=== PATIENT | female | born 1950 | race Caucasian/White ===

== ENCOUNTER 2018-01-22 15:17 | Inpatient (IN) | payer MEDICARE, OTHER ==
--- NOTE | 2018-01-22 15:19 | ER Report ---
History and Physical Time Seen By MD: 15:19 HPI/ROS CHIEF COMPLAINT: Fall HISTORY OF PRESENT ILLNESS: PT has a access hole in the bathroom that goes down to their crawl space. The cover was off the hole and the patient accidentally stepped back into the hole falling 5 feet down. Pt hit her r shoulder, r ribs and r upper abdomen on the wall of the hole on her way down. Pt also twisted her ankles with landing. Denies back pain. pt is able to move all extremities but has ankle pain with walking and shoulder pain with movement. Pt has r rib pain with deep breath. did not hit her head. REVIEW OF SYSTEMS: Constitutional: No fever, no chills. Eyes: No discharge. ENT: No sore throat. Cardiovascular: No chest pain, no palpitations. Respiratory: No cough, no shortness of breath. Gastrointestinal: No abdominal pain, no vomiting. Genitourinary: No hematuria. Musculoskeletal: No back pain, + r shoulder, ankle and rib pain Skin: No rashes. Neurological: No headache. Allergies: Coded Allergies: Penicillins (Verified Allergy, Unknown, 01/22/18) Home Meds Reported Medications Atorvastatin Calcium (LIPITOR) 20 Mg Tablet, 1 TAB PO QDAY, TAB 01/22/18 Past Medical/Surgical History pmhx: hyperlipid, htn Pshx: left foot Reviewed Nurses Notes: Yes Hx Smoking: No Hx Alcohol Use: No Constitutional Vital Sign - Last 24 Hours 01/22/18 01/22/18 01/22/18 15:22 15:30 17:00 Temp 98.5 Pulse 66 68 68 Resp 20 B/P (MAP) 144/83 135/72 (93) 140/79 (99) Pulse Ox 84 94 O2 Delivery Room Air Physical Exam General Appearance: The patient is alert, has no immediate need for airway protection and no signs of toxicity. Eyes: Pupils equal and round no pallor or injection, EOMI ENT: no pharyngeal erythema or exudates, Mucous membranes are moist, TM are nl b/l, neg hemotympanums Respiratory: There are no retractions, lungs are clear to auscultation, + tenderness r chest wall lateral right ribs 4-8 Cardiovascular: Regular rate and rhythm. pulses are equal and symmetrical Gastrointestinal: Abdomen is soft with mild tenderness ruq, no masses, bowel sounds normal, no guarding, no rigidity or rebound Neurological: Cranial nerves II-XII grossly intact, no sensory or motor loss Skin: Warm and dry, no rashes, + abrasions on b/l distal tibias Musculoskeletal: Neck is supple non tender, no vertebral tenderness Extremities have full range of motion no obvious deformity. + pain with ROM with r shoulder with abduction; no pain at elbows with supination and pronation, pt has no pelvis tenderness, no laxity at knee or ankle with rom DIFFERENTIAL DIAGNOSIS: After history and physical exam differential diagnosis was considered for shoulder fx vs contusion, rib fx vs contusion, liver contusion vs laceration, ankle fx vs sprain Medical Decision Making Data Points Result Diagram: 01/22/18 1540 01/22/18 1540 Laboratory Hematology Test 01/22/18 15:40 Red Blood Count 5.21 M/uL (4.17-5.56) Mean Corpuscular Volume 89.7 fL (80.0-96.0) Mean Corpuscular Hemoglobin 30.8 pg (26.0-33.0) Mean Corpuscular Hemoglobin Concent 34.3 g/dL (32.0-36.0) Red Cell Distribution Width 13.5 % (11.5-14.5) Mean Platelet Volume 8.3 fL (7.2-11.1) Neutrophils (%) (Auto) 78.5 % (39.4-72.5) Lymphocytes (%) (Auto) 14.4 % (17.6-49.6) Monocytes (%) (Auto) 6.1 % (4.1-12.4) Eosinophils (%) (Auto) 0.5 % (0.4-6.7) Basophils (%) (Auto) 0.5 % (0.3-1.4) Nucleated RBC Relative Count (auto) 0.1 /100WBC Neutrophils # (Auto) 8.3 K/uL (2.0-7.4) Lymphocytes # (Auto) 1.5 K/uL (1.3-3.6) Monocytes # (Auto) 0.6 K/uL (0.3-1.0) Eosinophils # (Auto) 0.0 K/uL (0.0-0.5) Basophils # (Auto) 0.0 K/uL (0.0-0.1) Nucleated RBC Absolute Count (auto) 0.01 K/uL Sodium Level 141 mmol/L (137-145) Potassium Level 3.7 mmol/L (3.5-5.0) Chloride Level 102 mmol/L (98-107) Carbon Dioxide Level 27 mmol/L (22-31) Blood Urea Nitrogen 24 mg/dl (7-18) Creatinine 1.10 mg/dl (0.52-1.04) Glomerular Filtration Rate Calc 49.1 Random Glucose 133 mg/dl (75-110) Calcium Level 9.6 mg/dl (8.4-10.2) Total Bilirubin 0.3 mg/dl (0.2-1.3) Aspartate Amino Transf (AST/SGOT) 80 U/L (0-35) Alanine Aminotransferase (ALT/SGPT) 88 U/L (0-56) Alkaline Phosphatase 31 U/L (0-126) Total Protein 7.4 g/dl (6.3-8.2) Albumin 4.2 g/dl (3.5-5.0) Chemistry Test 01/22/18 15:40 White Blood Count 10.5 k/uL (4.5-11.0) Red Blood Count 5.21 M/uL (4.17-5.56) Hemoglobin 16.1 g/dL (12.0-16.0) Hematocrit 46.8 % (34.0-47.0) Mean Corpuscular Volume 89.7 fL (80.0-96.0) Mean Corpuscular Hemoglobin 30.8 pg (26.0-33.0) Mean Corpuscular Hemoglobin Concent 34.3 g/dL (32.0-36.0) Red Cell Distribution Width 13.5 % (11.5-14.5) Platelet Count 258 K/uL (150-450) Mean Platelet Volume 8.3 fL (7.2-11.1) Neutrophils (%) (Auto) 78.5 % (39.4-72.5) Lymphocytes (%) (Auto) 14.4 % (17.6-49.6) Monocytes (%) (Auto) 6.1 % (4.1-12.4) Eosinophils (%) (Auto) 0.5 % (0.4-6.7) Basophils (%) (Auto) 0.5 % (0.3-1.4) Nucleated RBC Relative Count (auto) 0.1 /100WBC Neutrophils # (Auto) 8.3 K/uL (2.0-7.4) Lymphocytes # (Auto) 1.5 K/uL (1.3-3.6) Monocytes # (Auto) 0.6 K/uL (0.3-1.0) Eosinophils # (Auto) 0.0 K/uL (0.0-0.5) Basophils # (Auto) 0.0 K/uL (0.0-0.1) Nucleated RBC Absolute Count (auto) 0.01 K/uL Glomerular Filtration Rate Calc 49.1 Calcium Level 9.6 mg/dl (8.4-10.2) Total Bilirubin 0.3 mg/dl (0.2-1.3) Aspartate Amino Transf (AST/SGOT) 80 U/L (0-35) Alanine Aminotransferase (ALT/SGPT) 88 U/L (0-56) Alkaline Phosphatase 31 U/L (0-126) Total Protein 7.4 g/dl (6.3-8.2) Albumin 4.2 g/dl (3.5-5.0) EKG/Imaging Imaging see reports. ED Course/Re-evaluation Clinical Indication for ER IV: IV Access ED Course xray and CT areas of discomfort. Will give tetnus due to pts abrasions. 01/22/2018 5:15:07 pm Radiologist called me to let me know that her CT of abd and pelvis did not have any contrast due to infiltration of contrast into r arm. Did speak wtih pt and she denies pain in arm. Line was removed and nurses notified to observe. 01/22/2018 5:26:17 pm Surgery here to admit patient. pt has multiple rib fractures on right with small pneumothorax. Ptx not evident on CXR. Pts ankle/foot do not show any acute fx. pt does have old remote avulsion fx on right ankle which pt was unaware. Pts shoulder and clavicle stable. 01/22/2018 5:31:25 pm Resp called to perform FVC and start insentive spirometer Decision to Disposition Date: Jan 22, 2018 Decision to Disposition Time: 17:27 Depart Departure Latest Vital Signs Vital Signs Date Time Temp Pulse Resp B/P (MAP) Pulse Ox O2 Delivery O2 Flow Rate FiO2 01/22/18 17:00 68 140/79 (99) 01/22/18 15:30 94 01/22/18 15:22 98.5 20 Room Air Impression: Primary Impression: Multiple rib fractures Additional Impressions: Fall Pneumothorax on right Multiple contusions Condition: Stable Disposition: Admitted from ER Problem Qualifiers Primary Impression: Multiple rib fractures Encounter type: initial encounter Fracture type: closed Laterality: right Qualified Codes: S22.41XA - Multiple fractures of ribs, right side, initial encounter for closed fracture Additional Impressions: Fall Encounter type: initial encounter Qualified Codes: W19.XXXA - Unspecified fall, initial encounter EDSON PATHAK DO Jan 22, 2018 15:19
[2018-01-22] MEDS ORDERED: ATOR20TA22 PO (15:29)
[2018-01-22] MEDS ORDERED: DIPHTH/TETANUS/ACEL. PERTUSSIS IM ONLY ONE (15:35)
[2018-01-22] MEDS ORDERED: IOPAMIDOL 76% 75 ML INFUS BTL 75 ML ONE (15:59)
[2018-01-22] MEDS ORDERED: NS(*) 0.9% 500 ML BAG 500 ML IV ONE (16:05)
[2018-01-22 16:23] LABS: PLATELET COUNT, AUTOMATED 258 K/uL (150-450)
--- NOTE | 2018-01-22 16:47 | RADIOLOGY IMAGING REPORT ---
FACILITY: [facility] PATIENT NAME: Lissa Belle : 1950 MR: [id number] V: [id number] EXAM DATE: ORDERING PHYSICIAN: EDSON PATHAK TECHNOLOGIST: Location: [facility] - [place] Patient: Lissa Belle : 1950 Visit/Account:[id number] Date of Sevice: 01/22/2018 CHEST PA AND LAT COMPARISONS: None. ADDITIONAL PERTINENT HISTORY: Fall down 5 foot hole FINDINGS: Cardiomediastinal silhouette: Negative. Pulmonary vasculature: Mild atherosclerotic disease of the thoracic aortic arch. Otherwise negative Lung yu: Minimal bibasilar regions of scarring. Pleural spaces: Negative. Osseous structures: Mild spondylitic change involving the thoracic spine. Minimally displaced transport coordinator ior lateral right seventh and eighth rib fractures. Surrounding soft tissues: Negative. IMPRESSION: 1. Mildly displaced right seventh and eighth rib fractures. 2. No acute cardiopulmonary disease. Report Dictated By: Tomasz Ramirez MD at 01/22/2018 4:41 PM Report E-Signed By: Tomasz Ramirez MD at 01/22/2018 4:44 PM WSN:[id number]
--- NOTE | 2018-01-22 16:49 | RADIOLOGY IMAGING REPORT ---
FAC[place] [facility] [place] PATIENT NAME: Lissa Belle : 1950 MR: [id number] V: [id number] EXAM DATE: ORDERING PHYSICIAN: EDSON PATHAK TECHNOLOGIST: Location: [facility] [place] Patient: Lissa Belle : 1950 Visit/Account:[id number] Date of Sevice: 01/22/2018 Examination: 2 views of the right ribs. Comparisons: Conventional radiographs of the chest dated same day. HISTORY: Patient status post fall down hole. FINDINGS: 2 views of the right ribs demonstrate mildly displaced posterior lateral right eighth and ninth rib f ractures. There are nondisplaced fractures involving the posterior aspects of the right 10th and 12th ribs. Spondylitic change involving the thoracic or lumbar spine. IMPRESSION: 1. Fractures involving the lower right ribs as detailed above. Report Dictated By: Tomasz Ramirez MD at 01/22/2018 4:44 PM Report E-Signed By: Tomasz Ramirez MD at 01/22/2018 4:45 PM WSN:[id number]
--- NOTE | 2018-01-22 16:50 | RADIOLOGY IMAGING REPORT ---
FACILITY: [facility] PATIENT NAME: Lissa Belle : 1950 MR: [id number] V: [id number] EXAM DATE: ORDERING PHYSICIAN: EDSON PATHAK TECHNOLOGIST: Location: [facility] - [place] Patient: Lissa Belle : 1950 Visit/Account:[id number] Date of Sevice: 01/22/2018 ANKLE 3 VIEW MIN RIGHT COMPARISONS: None. ADDITIONAL PERTINENT HISTORY: Fall down hole FINDINGS: Osseous structures: Moderate size plantar calcaneal spur. Small well-corticated bony density projecti ng off the lateral aspect of the medial malleolus compatible with a remote avulsive-type fracture in this region. No acute bony fractures noted. Joint spaces: Negative. Surrounding soft tissues: Negative. IMPRESSION: 1. Findings compatible with a remote avulsive-type fracture off the medial malleolus. 2. Moderate-sized plantar calcaneal spur. 3. No acute appearing bony abnormalities involving the right ankle. Report Dictated By: Tomasz Ramirez MD at 01/22/2018 4:45 PM Report E-Signed By: Tomasz Ramirez MD at 01/22/2018 4:47 PM WSN:[id number]
--- NOTE | 2018-01-22 16:51 | RADIOLOGY IMAGING REPORT ---
FACILITY: [facility] PATIENT NAME: Lissa Belle : 1950 MR: [id number] V: [id number] EXAM DATE: ORDERING PHYSICIAN: EDSON PATHAK TECHNOLOGIST: Location: [facility] Patient: Lissa Belle : 1950 Visit/Account:[id number] Date of Sevice: 01/22/2018 FOOT 3 VIEW LEFT COMPARISONS: None. ADDITIONAL PERTINENT HISTORY: Fall down 5 foot fall. FINDINGS: Osseous structures: Small plantar calcaneal spur. Mild hallux valgus deformity. No bony fractures inv olving the left foot. Joint spaces: Negative. Surrounding soft tissues: Negative. IMPRESSION: 1. Small plantar calcaneal spur. 2. No acute appearing bony abnormalities. Report Dictated By: Tomasz Ramirez MD at 01/22/2018 4:47 PM Report E-Signed By: Tomasz Ramirez MD at 01/22/2018 4:48 PM WSN:[id number]
--- NOTE | 2018-01-22 16:52 | RADIOLOGY IMAGING REPORT ---
FACILITY: [facility] - [place] PATIENT NAME: Lissa Belle : 1950 MR: [id number] V: [id number] EXAM DATE: ORDERING PHYSICIAN: EDSON PATHAK TECHNOLOGIST: Location: [facility] [place] Patient: Lissa Belle : 1950 Visit/Account:[id number] Date of Sevice: 01/22/2018 SHOULDER MIN 2 VIEWS RIGHT COMPARISONS: None. ADDITIONAL PERTINENT HISTORY: Fall down 5 foot fall. FINDINGS: Osseous structures: Subchondral sclerosis and osteophyte formation involving the right acromioclavicu lar joint. Otherwise negative Joint spaces: Negative. Surrounding soft tissues: Negative. IMPRESSION: 1. Mild osteoarthritic changes involving the right acromioclavicular joint. 2. No acute appearing bony abnormalities. Report Dictated By: Tomasz Ramirez MD at 01/22/2018 4:48 PM Report E-Signed By: Tomasz Ramirez MD at 01/22/2018 4:49 PM WSN:[id number]
--- NOTE | 2018-01-22 16:53 | RADIOLOGY IMAGING REPORT ---
FACILITY: [facility] PATIENT NAME: Lissa Belle : 1950 MR: [id number] V: [id number] EXAM DATE: ORDERING PHYSICIAN: EDSON PATHAK TECHNOLOGIST: Location: [facility] - [place], [place] Patient: Lissa Belle : 1950 Visit/Account:[id number] Date of Sevice: 01/22/2018 ANKLE 3 VIEW MIN LEFT COMPARISONS: None. ADDITIONAL PERTINENT HISTORY: Fall down 5 foot whole. FINDINGS: Osseous structures: Small plantar calcaneal spur. No bony fractures involving the left ankle. Joint spaces: Negative. Surrounding soft tissues: Negative. IMPRESSION: 1. No evidence of acute traumatic injury involving the left ankle. Report Dictated By: Tomasz Ramirez MD at 01/22/2018 4:50 PM Report E-Signed By: Tomasz Ramirez MD at 01/22/2018 4:50 PM WSN:[id number]
--- NOTE | 2018-01-22 17:06 | RADIOLOGY IMAGING REPORT ---
FACILITY: [facility] PATIENT NAME: Lissa Belle : 1950 MR: [id number] V: [id number] EXAM DATE: ORDERING PHYSICIAN: EDSON PATHAK TECHNOLOGIST: Location: [facility] Patient: Lissa Belle : 1950 Visit/Account:[id number] Date of Sevice: 01/22/2018 ADDENDUM #1 Results were called to EDSON PATHAK on 01/22/2018 5:12 PM. Report Dictated By: August Polanco MD at 01/22/2018 5:12 PM Report E-Signed By: August Polanco MD at 01/22/2018 5:12 PM ORIGINAL REPORT EXAMINATION: Abdomen and pelvis CT with contrast HISTORY: Fall, right-sided pain TECHNIQUE: CT was performed through the abdomen and pelvis following injection of iodinated intrave nous contrast. Sagittal and coronal MPR reformatted images were generated. 75 mL isovue 370 injected . One of the following dose optimization techniques was utilized in the performance of this exam: autom ated exposure control; adjustment of the mA and/or kV according to patient size; or use of iterative reconstruction technique. Specific details can be referenced in the facility's radiology CT exam ope rational policy. COMPARISON: None. FINDINGS: Notably no contrast is visible within the abdomen in keeping with apparent failure of the injection. Lower chest: Mitral valve calcification versus prosthesis noted. Trace to small partially imaged righ t pneumothorax. Left lower lung subsegmental atelectasis. Right posterior chest wall soft tissue gas related to adjacent rib fractures. Spleen: Normal. Adrenal glands: Normal. Pancreas: Normal. Kidneys: Normal. Gallbladder: Normal. Liver: Normal. Vessels: Normal for age. Lymph node assessment: Normal. Bowel including small bowel, colon and appendix: Normal stomach, normal small bowel, normal appendix, and colonic diverticulosis. No acute bowel abnormality. Peritoneum / retroperitoneum / mesentery: Normal. Pelvic structures: Normal bladder, absent uterus and normal rectum. No pelvic fluid or adenopathy. Body wall: Right posterior lower chest/upper abdomen soft tissue gas related to adjacent rib fracture s and right pneumothorax. Musculoskeletal: Nondisplaced right acute posterior lateral eighth and ninth rib fractures. Displaced posterior right 10th through 12th rib fractures IMPRESSION: 1. Acute nondisplaced right posterolateral eighth and ninth rib fractures. Displaced acute posterior right 10th through 12th rib fractures. 2. Partially imaged trace to small right pneumothorax. 3. Right posterior lower chest/upper abdomen soft tissue gas related to the rib fractures and pneumot horax. 4. This study is a noncontrast study. There was failure of contrast injection and the contrast may carbajal ve extravasated at the injection site. Correlate with exam. 5. No apparent additional acute abnormality. Report Dictated By: August Polanco MD at 01/22/2018 4:50 PM Report E-Signed By: August Polanco MD at 01/22/2018 5:04 PM WSN:[id number]
[2018-01-22] MEDS ORDERED: fentaNYL CITR 100 MCG/2 ML AMP IVP ONE (17:25)
[2018-01-22] MEDS ORDERED: MORPHINE 2 MG/ML SYR IVP PRN (18:35)
[2018-01-22] MEDS ORDERED: hydrALAZINE HCL 20 MG/ML VIAL IVP PRN (18:40)
[2018-01-22] MEDS ORDERED: ONDANSETRON 4 MG/2 ML VIAL IVP PRN (18:40)
[2018-01-22] MEDS: APAP/HYDROCODONE 325/5 TAB PO PRN (18:53)
[2018-01-22] MEDS: GABAPENTIN 300 MG CAP PO SCH (21:43)
[2018-01-22] MEDS: LIDOCAINE 5% PATCH TP SCH (21:44)
[2018-01-23] VITALS (7 sets, daily range): BP systolic 127–145; BP diastolic 57–80
[2018-01-23] MEDS: APAP/HYDROCODONE 325/5 TAB PO PRN ×2 (04:13→23:22)
--- NOTE | 2018-01-23 07:06 | RADIOLOGY IMAGING REPORT ---
FACILITY: [facility] PATIENT NAME: Lissa Belle : 1950 MR: [id number] V: [id number] EXAM DATE: ORDERING PHYSICIAN: ZEKE ESPINOZA TECHNOLOGIST: Location: [facility] Patient: Lissa Belle : 1950 Visit/Account:[id number] Date of Sevice: 01/23/2018 CHEST PA AND LAT HISTORY: Evaluate for progression of pneumothorax. COMPARISON: 01/22/2018. CT abdomen and pelvis 01/22/2018. TECHNIQUE: PA and lateral views of the chest. FINDINGS: Pulmonary: Small right apical pneumothorax is unchanged. It is much better appreciated on the CT abdo men and pelvis. There is minimal atelectasis or scarring in both lower lobes, left greater than right , unchanged. There is stable blunting of the posterior costophrenic angles. Cardiomediastinal: Cardiac and mediastinal silhouettes are within normal limits. Bones/soft tissues: No acute osseous abnormality. There is mild degenerative change of the spine. The visible abdomen is normal. IMPRESSION: 1. Small right apical pneumothorax is unchanged. 2. No change in aeration of the lungs. Report Dictated By: Nancy Smith at 01/23/2018 6:59 AM Report E-Signed By: Nancy Smith at 01/23/2018 7:02 AM WSN:[id number]
--- NOTE | 2018-01-23 08:38 | General Surgery Progress Note ---
Subjective Patient Complains of: Cardiovascular: Chest Pain, Other (at site of rib fractures) Physical Exam Vital Signs Date Time Temp Pulse Resp B/P (MAP) Pulse Ox O2 Delivery O2 Flow Rate FiO2 01/23/18 06:55 85 01/23/18 04:04 98.1 69 14 145/76 (99) Nasal Cannula 2.5 Intake and Output 01/23/18 07:00 Intake Total 500 ml Balance 500 ml Intake IV Total 500 ml # Voids 2 General Appearance: Alert, Awake, No Acute Distress Cardiovascular: Regular Rate and Rhythm Respiratory: Clear to Auscultation, Other (slight splinting with deep inspirations, chest wall tenderness right below and lateral to the breast, mild ecchymosis at that site) GI: Soft and Non-Tender Result Diagram: 01/22/18 1540 01/23/18 0602 Assessment and Plan Problems: (1) Multiple rib fractures Status: Acute Assessment & Plan: 01/23/18 0730: Follow up chest xray without significant contusion or accumulation of hemothorax. Note her oxygen requirement is increasing slightly. We will work on pulmonary toilet and ambulating as well as being out of bed. Today, her creatinine is decreased to 0.6 so will add toradol for improved pain control. (2) Pneumothorax on right Status: Acute Assessment & Plan: 01/23/18 07:30: Follow up CXR this morning does not reveal expansion of pneumothorax noted on CT only during workup. (3) Hypertension Status: Chronic Assessment & Plan: 01/23/18 07:30: The patient does not recall the dosage of her losartan so will ask her to bring in her original bottle for verification. Hydralazine if needed until then. (4) Hyperlipidemia Status: Chronic Assessment & Plan: 01/23/18 07:30: The patient's atorvastin has been reordered. Exam Sepsis Risk: No Definite Risk Problem Qualifiers (1) Multiple rib fractures: Encounter type: subsequent encounter Fracture type: closed Laterality: right ZEKE ESPINOZA MD Jan 23, 2018 07:46
[2018-01-23] MEDS: PATCH REMOVAL 1 EA TP SCH (09:00)
[2018-01-23] MEDS: GABAPENTIN 300 MG CAP PO SCH ×3 (09:41→20:34)
[2018-01-23] MEDS: KETOROLAC 15 MG/ML VIAL IVP SCH ×3 (11:27→23:22)
[2018-01-23] MEDS ORDERED: LOSA100T69 PO (14:04)
[2018-01-23] MEDS ORDERED: ACETA/BUTAL/CAFF 325/50/40 TAB PO PRN (16:40)
[2018-01-23] MEDS: LIDOCAINE 5% PATCH TP SCH (20:37)
[2018-01-24 03:59] VITALS: BP 121/56
[2018-01-24] MEDS: KETOROLAC 15 MG/ML VIAL IVP SCH (05:36)
--- NOTE | 2018-01-24 06:34 | RADIOLOGY IMAGING REPORT ---
FACILITY: [facility] [place] PATIENT NAME: Lissa Belle : 1950 MR: [id number] V: [id number] EXAM DATE: ORDERING PHYSICIAN: ZEKE ESPINOZA TECHNOLOGIST: Location: [facility] Patient: Lissa Belle : 1950 Visit/Account:[id number] Date of Sevice: 01/24/2018 CHEST PA AND LAT HISTORY: Follow-up pneumothorax observed on CT scan at admission. COMPARISON: 01/23/2018 and 01/22/2018. TECHNIQUE: PA and lateral views of the chest. FINDINGS: Pulmonary: Tiny right apical pneumothorax barely perceptible but is unchanged. Small right pleural ef fusion is unchanged. Stable bibasilar opacities. There is mild right hemidiaphragm elevation. Cardiomediastinal: Cardiac and mediastinal silhouettes are within normal limits. There is mild aortic calcification. Bones/soft tissues: No acute osseous abnormality. The visible abdomen is normal. IMPRESSION: 1. Tiny right apical pneumothorax is unchanged. 2. No change in the small right pleural effusion or of the bibasilar opacities, likely atelectasis. Report Dictated By: Nancy Smith at 01/24/2018 6:26 AM Report E-Signed By: Nancy Smith at 01/24/2018 6:29 AM WSN:[id number]
[2018-01-24 07:08] VITALS: BP 120/69
[2018-01-24] MEDS ORDERED: GABA-549 PO (07:53)
[2018-01-24] MEDS ORDERED: DOCU-416 PO (07:53)
[2018-01-24] MEDS ORDERED: IBUP600T22 PO (07:53)
[2018-01-24] MEDS ORDERED: LOR5/325 PO (07:53)
--- NOTE | 2018-01-24 07:58 | Short(Outpt) Discharge Summary ---
Discharge Summary Reason for Hosp/Final Diag: (1) Multiple rib fractures Status: Acute Hospital Course & Plan: 01/23/18 0730: Follow up chest xray without significant contusion or accumulation of hemothorax. Note her oxygen requirement is increasing slightly. We will work on pulmonary toilet and ambu lating as well as being out of bed. Today, her creatinine is decreased to 0.6 so will add toradol for improved pain control. 01/24/18: Doing well. Breathing without problems. Pain well controlled. She wishes to go home today. Her will drive her back to [place] after discharge. Will d/c to home. I don't suspect she'll need home O2 as she'll be going to a lower elevation. She should continue to use her incentive spirometer, deep breathing, etc. (2) Pneumothorax on right Status: Acute Hospital Course & Plan: 01/23/18 07:30: Follow up CXR this morning does not reveal expansion of pneumothorax noted on CT only during workup. (3) Hypertension Status: Chronic Hospital Course & Plan: 01/23/18 07:30: The patient does not recall the dosage of her losartan so will ask her to bring in her original bottle for verification. Hydralazine if needed until then. (4) Hyperlipidemia Status: Chronic Hospital Course & Plan: 01/23/18 07:30: The patient's atorvastin has been reordered. Departure Discharge to: Home, Self Care Discharge Instructions Home Meds Active Scripts Ibuprofen (IBUPROFEN) 600 Mg Tablet, 1 TAB PO QID PRN for PAIN, #30 TAB 0 Refills Prov:BEATRICE GRADY MD 01/24/18 Gabapentin (GABAPENTIN) 300 Mg Capsule, 1 CAP PO TID, #20 CAPSULE 0 Refills Prov:BEATRICE GRADY MD 01/24/18 Docusate Sodium (COLACE) 100 Mg Capsule, 1 CAP PO BID, #30 CAP 0 Refills TAKE WITH A FULL GLASS OF WATER Prov:BEATRICE GRADY MD 01/24/18 Hydrocodone Bit/Acetaminophen (HYDROCODON-ACETAMINOPHEN 5-325) 1 Each Tablet, 1- 2 TAB PO Q6H PRN for MODERATE PAIN, #30 TAB 0 Refills Prov:BEATRICE GRADY MD 01/24/18 Reported Medications Losartan Potassium (LOSARTAN POTASSIUM) 100 Mg Tablet, 100 MG PO QDAY 01/23/18 Atorvastatin Calcium (LIPITOR) 20 Mg Tablet, 1 TAB PO QHS, TAB 01/22/18 Diet: Regular Activity: As Tolerated Special Instructions: You may perform whatever activities that you feel comfortable performing. Stay active and continue to work on deep breathing and using your incentive spirometer. I recommend that you don't fly or scuba dive in the next month as your lung heals. When you picker box operator your prescriptions, purchase a bottle of milk of magnesia and packets of miralax. I recommend that you take the colace tablets twice every day, 30ml of milk of magnesia twice every day, and 1 packet of miralax in an 12oz glass of water daily. Keep up with this regimen until your bowels are functioning normally. Follow up with your primary care provider in the next week. Problem Qualifiers (1) Multiple rib fractures: Encounter type: subsequent encounter Fracture type: closed Laterality: right Fracture healing: with routine healing Qualified Codes: S22.41XD - Multiple fractures of ribs, right side, subsequent encounter for fracture with routine healing (2) Hypertension: Hypertension type: essential hypertension Qualified Codes: I10 - Essential (primary) hypertension (3) Hyperlipidemia: Hyperlipidemia type: unspecified Qualified Codes: E78.5 - Hyperlipidemia, unspecified BEATRICE GRADY MD Jan 24, 2018 07:58
[2018-01-24] MEDS: PATCH REMOVAL 1 EA TP SCH (08:27)
[2018-01-24] MEDS: GABAPENTIN 300 MG CAP PO SCH (08:27)
== END 2018-01-24 10:48 | disposition home or self-care (01) | DRG 184 ==
LOC: ER 15:45 → MED 17:26
PROVIDERS: ADMIT Surgery; ATTEND Surgery
DX: S22.41XA Multiple fractures of ribs, right side, initial encounter for closed fracture (principal); J93.9 Pneumothorax, unspecified; I10 Essential (primary) hypertension; E78.5 Hyperlipidemia, unspecified; Z23 Encounter for immunization; W17.89XA Other fall from one level to another, initial encounter; Y92.002 Bathroom of unspecified non-institutional (private) residence as the place of occurrence of the external cause; Y99.8 Other external cause status; Z85.41 Personal history of malignant neoplasm of cervix uteri
CPT/HCPCS: 36415; 71046; 71100; 74177; 82040; 82247; 82310; 82374; 82435; 82565; 82947; 84075; 84132; 84155; 84295; 84450; 84460; 84520; 85025; 90471; 90715; 94010; 96361; 96374; 99285; J1885; J2270; J2405; J3010; J7040; Q9967